=== PATIENT | female | born 1965 | race Caucasian/White ===

== ENCOUNTER 2018-02-15 10:00 | Inpatient (IN) | payer OTHER ==
[~2018-02-15] VITALS: Ht 160 cm; Wt 115.7 kg
[2018-02-15] MEDS ORDERED: HUMALOG100 UNIT/1 (10:35)
[2018-02-15] MEDS ORDERED: HUMULIN 70100 UNIT/2 IJ (10:35)
[2018-02-15] MEDS ORDERED: LIPITOR40 MG PO (10:36)
[2018-02-15] MEDS ORDERED: TOPROL XL50 M1 PO (10:36)
[2018-02-15] MEDS ORDERED: SYNTHROID50 MCG PO (10:36)
[2018-02-15] MEDS ORDERED: ATACAND32 MG PO (10:36)
[2018-02-15] MEDS ORDERED: PLAVIX75 MG PO (10:37)
[2018-02-15] MEDS ORDERED: GABAPENTIN600 MG PO (10:37)
[2018-02-15] MEDS ORDERED: BUMETANIDE0.5 MG PO (10:37)
[2018-02-15] MEDS ORDERED: KEPPRA500 MG PO (10:38)
[2018-02-15] MEDS ORDERED: DAFLONEX-XL TA1 EACH PO (10:38)
[2018-02-15] MEDS ORDERED: MIRAPEX1 MG PO (10:38)
[2018-02-15] MEDS ORDERED: NIZORAL SHAMPO120 ML (10:39)
[2018-02-15] MEDS ORDERED: CARBIDOPA-LEVO1 EAC4 PO (10:39)
[2018-02-15] MEDS ORDERED: ASA81 MG PO (10:40)
[2018-02-15] MEDS ORDERED: OMEGA 3 1,0001 EACH PO (10:40)
[2018-02-15] MEDS ORDERED: LATANOPROST2.5 ML OP (10:41)
[2018-02-15] MEDS ORDERED: ZETIA10 MG PO (10:41)
[2018-02-15] MEDS ORDERED: MAGNESIUM250 M1 PO (10:41)
[2018-02-15] MEDS ORDERED: [UNRECOGNIZED DRUG - OTHER] PO (10:42)
[2018-02-27] MEDS ORDERED: DOCUSATE SODIU100 MG PO (10:18)
[2018-02-27] MEDS ORDERED: NEURONTIN800 MG PO (10:19)
[2018-02-27] MEDS ORDERED: CLONAZEPAM1 MG PO (10:20)
[2018-02-27] MEDS ORDERED: AMOX-CLAV 875-1 EACH PO (10:20)
[2018-02-27] MEDS ORDERED: PERCOCET 5-3251 EACH PO (10:20)
== END 2018-02-27 14:43 | DRG 455 ==
LOC: O/R 02-26 05:35 → SURH 02-26 10:00 → PED 02-26 15:48
PROVIDERS: Orthopaedic Surgery Orthopaedic Surgery of the Spine
PROC: 0SG1071 Fusion of 2 or more Lumbar Vertebral Joints with Autologous Tissue Substitute, Posterior Approach, Posterior Column, Open Approach (ICD-10-PCS; 2018-02-26)
PROC: 0ST40ZZ Resection of Lumbosacral Disc, Open Approach (ICD-10-PCS; 2018-02-26)
PROC: 0SG30AJ Fusion of Lumbosacral Joint with Interbody Fusion Device, Posterior Approach, Anterior Column, Open Approach (ICD-10-PCS; 2018-02-26)
PROC: 07DS3ZZ Extraction of Vertebral Bone Marrow, Percutaneous Approach (ICD-10-PCS; 2018-02-26)
PROC: 0SG30A0 Fusion of Lumbosacral Joint with Interbody Fusion Device, Anterior Approach, Anterior Column, Open Approach (ICD-10-PCS; principal; 2018-02-26 13:30)
DX: M47.27 Other spondylosis with radiculopathy, lumbosacral region (principal); M48.07 Spinal stenosis, lumbosacral region; M43.17 Spondylolisthesis, lumbosacral region; M51.17 Intervertebral disc disorders with radiculopathy, lumbosacral region; I10 Essential (primary) hypertension; E11.9 Type 2 diabetes mellitus without complications; E03.8 Other specified hypothyroidism; E66.01 Morbid (severe) obesity due to excess calories

== ENCOUNTER 2018-09-26 12:45 | Inpatient (IN) | payer OTHER ==
[~2018-09-26] VITALS: Ht 160 cm; Wt 103.4 kg
[~2018-09-26 12:45] MED LIST: AMOX-CLAV 875-1 EACH PO; ASA81 MG PO; ATACAND32 MG PO; BUMETANIDE0.5 MG PO; CARBIDOPA-LEVO1 EAC4 PO; CLONAZEPAM1 MG PO; DAFLONEX-XL TA1 EACH PO; DOCUSATE SODIU100 MG PO; GABAPENTIN600 MG PO; HUMALOG100 UNIT/1; HUMULIN 70100 UNIT/2 IJ; KEPPRA500 MG PO; LATANOPROST2.5 ML OP; LIPITOR40 MG PO; MAGNESIUM250 M1 PO; MIRAPEX1 MG PO; NEURONTIN800 MG PO; NIZORAL SHAMPO120 ML; OMEGA 3 1,0001 EACH PO; PERCOCET 5-3251 EACH PO; PLAVIX75 MG PO; SYNTHROID50 MCG PO; TOPROL XL50 M1 PO; ZETIA10 MG PO; [UNRECOGNIZED DRUG - OTHER] PO
[2018-10-03] MEDS ORDERED: NEURONTIN800 MG PO (11:28)
[2018-10-03] MEDS ORDERED: COLACE100 MG PO (11:28)
[2018-10-03] MEDS ORDERED: PERCOCET 5-3251 EACH PO (11:29)
[2018-10-03] MEDS ORDERED: AMOX-CLAV 875-1 EACH PO (11:29)
[2018-10-03] MEDS ORDERED: CLONAZEPAM0.5 MG PO (11:29)
== END 2018-10-05 14:16 | DRG 520 ==
LOC: SURH 10-03 05:00 → O/R 10-03 05:00 → SURH 10-03 06:45
PROVIDERS: ADMIT Orthopaedic Surgery Orthopaedic Surgery of the Spine
PROC: 0SB20ZZ Excision of Lumbar Vertebral Disc, Open Approach (ICD-10-PCS; 2018-10-03)
PROC: 4A12X4Z Monitoring of Cardiac Electrical Activity, External Approach (ICD-10-PCS; 2018-10-03)
PROC: 00NY0ZZ Release Lumbar Spinal Cord, Open Approach (ICD-10-PCS; principal; 2018-10-03 06:45)
DX: M48.061 Spinal stenosis, lumbar region without neurogenic claudication (principal); I10 Essential (primary) hypertension; E03.8 Other specified hypothyroidism; E66.01 Morbid (severe) obesity due to excess calories

== ENCOUNTER 2022-01-10 05:13 | Day surgery (SDC) | payer OTHER ==
[~2022-01-10] VITALS: Ht 160 cm; Wt 99.8 kg
[~2022-01-10 05:13] MED LIST changes: +CLONAZEPAM0.5 MG PO; +COLACE100 MG PO
== END 2022-01-10 13:40 | disposition home or self-care (01) ==
LOC: CIR.AMB 05:13
PROVIDERS: ATTEND Colon & Rectal Surgery
DX: R15.9 Full incontinence of feces (principal); R33.9 Retention of urine, unspecified; Z88.2 Allergy status to sulfonamides; I10 Essential (primary) hypertension; J45.909 Unspecified asthma, uncomplicated; Z99.89 Dependence on other enabling machines and devices; G47.33 Obstructive sleep apnea (adult) (pediatric); E11.9 Type 2 diabetes mellitus without complications; E03.9 Hypothyroidism, unspecified; G43.909 Migraine, unspecified, not intractable, without status migrainosus; E66.9 Obesity, unspecified
CPT/HCPCS: 64581; 64590; 95972; C1767; C1778

== ENCOUNTER 2022-01-24 05:21 | Day surgery (SDC) | payer OTHER | END 2022-01-24 15:53 | disposition home or self-care (01) | LOC: CIR.AMB 05:21 | PROVIDERS: ATTEND Colon & Rectal Surgery | DX: R15.9 Full incontinence of feces (principal); Z88.8 Allergy status to other drugs, medicaments and biological substances; Z88.2 Allergy status to sulfonamides; R33.9 Retention of urine, unspecified; I10 Essential (primary) hypertension; I25.2 Old myocardial infarction; J45.909 Unspecified asthma, uncomplicated; M19.90 Unspecified osteoarthritis, unspecified site; Z79.4 Long term (current) use of insulin; E11.9 Type 2 diabetes mellitus without complications | CPT/HCPCS: 64590; 95971; C1767 ==